=== PATIENT | male | born 1940 ===

== ENCOUNTER 2016-07-08 07:43 | Outpatient (CLI) | payer MEDICARE ==
[2016-07-08 12:45] LABS: Anion Gap 12 mmol/L (10-20); BUN (Urea Nitrogen) 27 mg/dL (8.4-25.7); Calc. Creatinine Clearance 0 mL/min (70-130); Calcium 7.8 mg/dL (7.8-10.44); Carbon Dioxide 21 mmol/L (23-31); Chloride 115 mmol/L (98-107); Estimated GFR-MDRD 86
== END 2016-07-08 07:44 | disposition home or self-care (01) ==
LOC: NAV LABSP 07:43
PROVIDERS: ATTEND Internal Medicine
DX: R63.5 Abnormal weight gain (principal)
CPT/HCPCS: 36415; 80048

== ENCOUNTER 2016-07-15 15:44 | Emergency (ER) | payer MEDICARE ==
[2016-07-15 16:33] LABS: #Basophils 0.1 thou/uL (0.0-0.2); #Eosinphils 0.1 thou/uL (0.0-0.7); #Lymphocytes 1.1 thou/uL (1.20-3.40); #Monocytes 0.2 thou/uL (0.11-0.59); #Neutrophils 4.6 thou/uL (1.40-6.50); %Basophils 1.3 % (0.0-1.0); %Eosinophils 1.1 % (0.0-10.0); %Lymphocytes 18.2 % (21.0-51.0); %Monocytes 3.2 % (0.0-10.0); %Neutrophils 76.2 % (42.0-75.0); Hemoglobin 8.6 g/dL (14.0-18.0); Mean Corpuscular HGB CONC 31.2 g/dL (32.0-36.0); Mean Corpuscular Hemoglobin 31.7 pg (27.0-31.0); Mean Platelet Volume 5.6 fL (7.4-10.4); Platelet Count 321 thou/uL (130-400); RBC Distribution Width 14.7 % (11.5-14.5); Red Blood Cell (RBC) Count 2.71 mill/uL (4.70-6.10)
[2016-07-15 16:38] LABS: INR-International Normal Ratio 1.1; PTT 38.3 SEC (22.9-36.1); Prothrombin Time 13.8 SEC (12.0-14.7)
[2016-07-15 16:45] LABS: ALT (SGPT) 13 U/L (0-55); AST (SGOT) 16 U/L (5-34); Albumin 2.2 g/dL (3.4-4.8); Alkaline Phosphatase 139 U/L (40-150); Anion Gap 12 mmol/L (10-20); BUN (Urea Nitrogen) 19 mg/dL (8.4-25.7); Bilirubin, Total 0.4 mg/dL (0.2-1.2); Calc. Creatinine Clearance 0 mL/min (70-130); Calcium 7.5 mg/dL (7.8-10.44); Chloride 110 mmol/L (98-107); Estimated GFR-MDRD 85; Globulin 2.6 g/dL (2.4-3.5); Glucose 134 mg/dL (83-110); Potassium 4.3 mmol/L (3.5-5.1); Protein, Total 4.8 g/dL (5.8-8.1); Sodium 138 mmol/L (136-145)
--- NOTE | 2016-07-15 16:58 | CT ---
CT BRAIN WITHOUT CONTRAST 07/15/16 HISTORY: Fall, blood around eye. FINDINGS: There is ventricular sulcal prominence due to cortical atrophy. No evidence of acute infarct, hemorr nikko, midline shift or abnormal extra-axial fluid collections are seen. The basilar cisterns are pat ent. The bony calvarium is intact. There is partial opacification of the right maxillary sinus. Kayla gabby of the visualized paranasal sinuses and mastoid air cells are well aerated. IMPRESSION: No CT evidence of acute intracranial process. POS: [facility]
--- NOTE | 2016-07-15 17:02 | CT ---
CERVICAL SPINE CT WITHOUT IV CONTRAST: Date: 07/15/16 HISTORY: 76-year-old male with cervical spine injury following a fall from standing position. FINDINGS: Diffuse bone demineralization. Extensive multilevel disc osteophytosis and facet arthrosis changes w ith some variable severity canal, lateral recess, and foraminal stenosis. Right maxillary sinus muco tori disease. No evidence for acute fracture or facet dislocation. IMPRESSION: No fracture or facet dislocation. Generalized spondylosis and bone demineralization. Right maxillary sinus mucosal disease. POS: [facility]
[2016-07-15 17:03] LABS: Carbon Dioxide 20 mmol/L (23-31)
--- NOTE | 2016-07-15 17:08 | CT ---
CT FACIAL BONES: 07/15/16 HISTORY: 76-year-old with history of trauma. [facility]. Axial images are obtained wi th coronal and sagittal reconstructions. CT images demonstrate extensive opacification of much of the right maxillary sinus, compatible with chronic right sinus disease. No evidence of acute fracture seen. The left maxillary sinus, ethmoid s inuses, sphenoid sinuses, and frontal sinuses are well aerated. No evidence of medial or inferior or bital fractures seen. The patient has had previous right maxillary medial decompression suggesting that the right maxillar y sinus disease is chronic. IMPRESSION: No evidence of acute facial fractures. POS: [facility]
[2016-07-15 17:19] LABS: Bilirubin Negative (Negative); Blood, Urine Negative (Negative); Clarity Clear (Clear); Glucose, Urine (Dipstick) Negative (Negative); Leukocyte Negative (Negative); Nitrite Negative (Negative); Protein, Urine (Dipstick) Negative (Neg-Trace); Urobilinogen 0.2 mg/dL (0.2-1.0)
== END 2016-07-15 18:30 ==
LOC: NAV ERS 15:44
DX: S05.11XA Contusion of eyeball and orbital tissues, right eye, initial encounter (principal); J32.9 Chronic sinusitis, unspecified; D64.9 Anemia, unspecified; D32.9 Benign neoplasm of meninges, unspecified; Z79.899 Other long term (current) drug therapy; W01.0XXA Fall on same level from slipping, tripping and stumbling without subsequent striking against object, initial encounter
CPT/HCPCS: 36415; 70450; 70486; 72125; 80053; 81003; 85025; 85610; 85730

== ENCOUNTER 2016-07-28 07:26 | Outpatient (CLI) | payer MEDICARE, OTHER ==
[2016-07-28 07:53] LABS: ALT (SGPT) 15 U/L (0-55); AST (SGOT) 22 U/L (5-34); Alkaline Phosphatase 142 U/L (40-150); Anion Gap 10 mmol/L (10-20); BUN (Urea Nitrogen) 13 mg/dL (8.4-25.7); Bilirubin, Total 0.3 mg/dL (0.2-1.2); Calc. Creatinine Clearance 0 mL/min (70-130); Calcium 7.5 mg/dL (7.8-10.44); Carbon Dioxide 31 mmol/L (23-31); Cardiac Risk 2.3 (Less than 4.5); Chloride 105 mmol/L (98-107); Cholesterol 122 mg/dL (< 200 Desired); Estimated GFR-MDRD Greater than 90; Glucose 67 mg/dL (83-110); HDL Cholesterol 52 mg/dL (>60 Neg Risk); LDL Cholesterol, Calculated 59 mg/dL; Potassium 5.2 mmol/L (3.5-5.1); Sodium 141 mmol/L (136-145); Triglycerides 53 mg/dL (Less than 150)
[2016-07-28 08:29] LABS: Hemoglobin 7.8 g/dL (14.0-18.0); Mean Corpuscular HGB CONC 31.6 g/dL (32.0-36.0); Mean Corpuscular Hemoglobin 33.9 pg (27.0-31.0); Mean Platelet Volume 6.2 fL (7.4-10.4); Platelet Count 284 thou/uL (130-400); RBC Distribution Width 13.3 % (11.5-14.5); Red Blood Cell (RBC) Count 2.31 mill/uL (4.70-6.10); White Blood Cell (WBC) Count 4.1 thou/uL (4.8-10.8)
[2016-07-28 08:30] LABS: Anisocytosis SLIGHT = 6-15 cells (100X) (0-5/hpf); Eosinophils 2 % (0-10); Hypochromia MODERATE=16-30 cells (100X) (0-5/hpf); Lymphocytes 22 % (21-51); MDiff Complete? YES; Macrocytosis SLIGHT = 6-15 cells (100X) (0-5/hpf); Monocytes 8 % (0-10); Neutrophil 67 % (42-75); PLT Morphology Comment Appears Adequate
== END 2016-07-28 07:27 ==
LOC: NAV LABSP 07:26
PROVIDERS: ATTEND Internal Medicine
DX: E78.5 Hyperlipidemia, unspecified (principal); F10.159 Alcohol abuse with alcohol-induced psychotic disorder, unspecified; D64.9 Anemia, unspecified; R19.7 Diarrhea, unspecified
CPT/HCPCS: 80053; 80061; 84443; 85025; 87324; 87449

== ENCOUNTER 2016-07-29 07:22 | Outpatient (CLI) | payer MEDICARE, OTHER ==
[2016-07-29 13:56] LABS: #Basophils 0.1 thou/uL (0.0-0.2); #Eosinphils 0.1 thou/uL (0.0-0.7); #Lymphocytes 1.2 thou/uL (1.20-3.40); #Monocytes 0.3 thou/uL (0.11-0.59); %Basophils 1.7 % (0.0-1.0); %Eosinophils 2.1 % (0.0-10.0); %Lymphocytes 25.9 % (21.0-51.0); %Monocytes 6.7 % (0.0-10.0); %Neutrophils 63.5 % (42.0-75.0); Anisocytosis SLIGHT = 6-15 cells (100X) (0-5/hpf); Hemoglobin 8.1 g/dL (14.0-18.0); Hypochromia SLIGHT = 6-15 cells (100X) (0-5/hpf); MDiff Complete? YES; Macrocytosis SLIGHT = 6-15 cells (100X) (0-5/hpf); Mean Corpuscular HGB CONC 31.6 g/dL (32.0-36.0); Mean Corpuscular Hemoglobin 33.7 pg (27.0-31.0); PLT Morphology Comment Appears Adequate; Platelet Count 303 thou/uL (130-400); RBC Distribution Width 13.2 % (11.5-14.5); Red Blood Cell (RBC) Count 2.41 mill/uL (4.70-6.10); White Blood Cell (WBC) Count 4.7 thou/uL (4.8-10.8)
[2016-07-29 14:07] LABS: Reticulocyte Count 2.1 % (0.5-1.5)
[2016-07-29 17:55] LABS: Folate (Folic Acid) 15.1 ng/mL (7.0-31.4)
== END 2016-07-29 07:23 | disposition home or self-care (01) ==
LOC: NAV LABSP 07:22
PROVIDERS: ATTEND Internal Medicine
DX: D64.9 Anemia, unspecified (principal); E53.8 Deficiency of other specified B group vitamins
CPT/HCPCS: 36415; 82607; 82728; 82746; 85025; 85046

== ENCOUNTER 2016-07-30 07:35 | Outpatient (CLI) | payer MEDICARE, OTHER ==
[2016-07-30 10:21] LABS: Bilirubin Negative (Negative); Blood, Urine Negative (Negative); Clarity Clear (Clear); Glucose, Urine (Dipstick) Negative (Negative); Leukocyte Negative (Negative); Nitrite Negative (Negative); Protein, Urine (Dipstick) Negative (Neg-Trace); Urobilinogen 0.2 mg/dL (0.2-1.0); pH, Urine 7.5 (5.0-9.0)
== END 2016-07-30 07:36 | disposition home or self-care (01) ==
LOC: NAV LAB 07:35 → NAV LABSP 07:36
PROVIDERS: ATTEND Internal Medicine
DX: R19.7 Diarrhea, unspecified (principal)
CPT/HCPCS: 81003; 87324; 87449